=== PATIENT | female | born 1955 | race Caucasian/White ===

== ENCOUNTER → 2017-06-20 | Outpatient (CLI) | payer OTHER ==
--- NOTE | 2017-06-20 10:41 | ECHOF ---
Referral Reason:I10 HTN MEASUREMENTS -------- HEIGHT: 170.2 cm WEIGHT: 72.6 kg BP: 165/88 RVIDd: 2.0 cm (< 3.3) IVSd: 1.0 cm (0.6 - 1.1) LVIDd: 5.2 cm (3.9 - 5.3) LVPWd: 1.0 cm (0.6 - 1.1) IVSs: 1.2 cm LVIDs: 3.6 cm LVPWs: 1.3 cm LAESV Index (A-L): 25.44 ml/m Ao Diam: 3.4 cm (2.0 - 3.7) AV Cusp: 1.6 cm (1.5 - 2.6) LA Diam: 2.2 cm (2.7 - 3.8) MV EXCURSION: 20.651 mm (> 18.000) MV EF SLOPE: 105 mm/s (70 - 150) EPSS: 1.2 cm MV E Neil: 0.65 m/s MV DecT: 413 ms MV A Neil: 0.96 m/s MV E/A Ratio: 0.67 RAP: 5.00 mmHg RVSP: 19.32 mmHg FINDINGS -------- Sinus rhythm. This was a technically adequate study. Overall left ventricular systolic function is normal with, an EF between 55 - 60 %. The right ventricle is normal in size and function. Normal LA size by volume 22+/-6 ml/m2. The right atrium is normal in size. The aortic valve is trileaflet, and appears structurally normal. No aortic stenosis or regurgitation. The mitral valve leaflets are mildly thickened. There is trace to mild mitral regurgitation. Trace tricuspid regurgitation present. There is no evidence of pulmonary hypertension. The right ventricular systolic pressure, as measured by Doppler, is 19.32mmHg. The pulmonic valve was not well visualized. The aortic root size is normal. Normal inferior vena cava with normal inspiratory collapse consistent with estimated right atrial pressure of 5 mmHg. The pericardium is normal. There is no pericardial effusion. CONCLUSIONS -------- 1. Sinus rhythm. 2. The right ventricular systolic pressure, as measured by Doppler, is 19.32mmHg. 3. The pulmonic valve was not well visualized. 4. The aortic root size is normal. 5. There is no pericardial effusion. 6. This was a technically adequate study. 7. Overall left ventricular systolic function is normal with, an EF between 55 - 60 %. 8. Normal LA size by volume 22+/-6 ml/m2. 9. The aortic valve is trileaflet, and appears structurally normal. No aortic stenosis or regurgitation. 10. The mitral valve leaflets are mildly thickened. 11. There is trace to mild mitral regurgitation. 12. Trace tricuspid regurgitation present. 13. There is no evidence of pulmonary hypertension. WEATHER FORCASTER: Cory Cannon RDCS
== END | disposition home or self-care (01) ==
LOC: RADECHMAIN 08:30
PROVIDERS: ATTEND Family Medicine
DX: I34.0 Nonrheumatic mitral (valve) insufficiency (principal); I10 Essential (primary) hypertension
CPT/HCPCS: 93306

== ENCOUNTER → 2017-06-27 | Outpatient (CLI) | payer OTHER ==
--- NOTE | 2017-06-27 11:46 | NM ---
EXAMINATION TYPE: NM stress cardiolite complete DATE OF EXAM: 06/27/2017 COMPARISON: Nuclear medicine stress Cardiolite test dated 07/06/2015. HISTORY: History of hypercholesterolemia, family history of coronary artery disease, and history of t obacco abuse. Chest pain. TECHNIQUE: After the intravenous administration of 10.68 mCi Tc 99m Sestamibi - Rest images obtained 52 minutes post injection. The patient exercised using a KAMARI protocol and 1 minute prior to peak exercise was injected with 27.3 mCi Tc 99m Sestamibi - Stress images obtained 10 minutes post inject ion. FINDINGS: Targeted heart rate was achieved during performance of the study. Review of stress and rest SPECT tami ges demonstrates no distinct perfusion abnormality. Gated analysis shows normal wall motion with an estimated left ventricular ejection fraction of 64 %. IMPRESSION: 1. No scintigraphic evidence for reversible ischemia. 2. Estimated left ventricular ejection fraction of 64%.
--- NOTE | 2017-06-27 11:49 | P.STRESS ---
- Stress Test Note Stress Test Results/Findings: Exam Performed: NM stress cardiolite complete Exam Date: 06/27/17 Reason for Exam: Chest pain Height: 5 ft 7 in Weight: 72.575 kg Protocol: Cardiolite patti Stage: 3 Duration of Exercise: 11:00 Resting Heart Rate: 69 Resting Blood Pressure: 143/84 Maximum Achieved Heart Rate: 153 Maximum Achieved Blood Pressure: 219/91 85% PMHR: 135 100% PMHR: 159 METS: 12.1 Technologist Comment: Stress Test Results/Findings: Resting EKG shows a normal sinus rhythm with normal PA interval and QRS duration and normal ST-T waves. No ST segment depression suggestive ischemia was noted. Isolated PVCs were noted. Shouldn't did not complain of any chest pain during the test. Conclusion. Resting EKG is not suggestive ischemia. Patient did not complain of any anginal pain during the test Occasional PVCs were noted. The results of the nuclear study will follow.
== END | disposition home or self-care (01) ==
LOC: RADNMMAIN 08:50
PROVIDERS: ATTEND Family Medicine
DX: I49.3 Ventricular premature depolarization (principal); I10 Essential (primary) hypertension
CPT/HCPCS: 93017; 78452; A9500

== ENCOUNTER → 2018-06-06 | Outpatient (CLI) | payer BC ==
--- NOTE | 2018-06-06 10:45 | BD ---
EXAMINATION TYPE: Axial Bone Density DATE OF EXAM: 06/06/2018 COMPARISON: NONE CLINICAL HISTORY: Postmenopausal female Height: 5 FT 6 1/2 IN Weight: 159 RISK FACTORS HISTORY OF: Active: YES Postmenopausal woman: AGE 54 MEDICATIONS: Prednisone or other steroids: How Long: Thyroid Medications: Which medication: How Long: Osteoporosis Medications: Which medication: How Long: Additional Medications: LISINOPRIL, LEVOTHYROXINE,ATORVASTATIN, MELOXICAM, ASPIRIN, MULTI Additional History: EXAM MEASUREMENTS: Bone mineral densitometry was performed using the [employer] System. Bone mineral density as measured about the Lumbar spine is: ----- L1-L4(G/cm2): 0.997 T Score Values are as follows: ----- L2: -2.0 ----- L3: -1.6 ----- L4: -0.8 ----- L1-L4: -1.5 BASELINE Bone mineral density about the R hip (g/cm2): 0.826 Bone mineral density about the L hip (g/cm2): 0.884 T Score values are as follows: -----R Neck: -1.5 -----L Neck: -1.1 -----R Total: -1.0 -----L Total: -0.8 BASELINE IMPRESSION: Osteopenia (T Score between -2.5 and -1) overall in the low back and femoral neck level of both hips. There is slightly increased risk of fracture and the patient may be considered for treatment. Re-Screen 2-5 years. NOTE: T-SCORE=SD OF THE YOUNG ADULT MEAN.
--- NOTE | 2018-06-06 14:28 | MM ---
Reason for exam: screening (asymptomatic). Baseline mammogram. History: Patient is postmenopausal. Family history of breast cancer in maternal aunt. Physical Findings: Nurse did not find any significant physical abnormalities on exam. MG Screening Mammo w CAD Bilateral CC and MLO view(s) were taken. The breast tissue is heterogeneously dense. This may lower the sensitivity of mammography. There is no discrete abnormality. These results were verbally communicated with the patient and result sheet given to the patient on 06/06/18. ASSESSMENT: Negative, BI-RAD 1 RECOMMENDATION: Routine screening mammogram of both breasts in 1 year.
== END | disposition home or self-care (01) ==
LOC: RADBDWWP 09:41
PROVIDERS: ATTEND Family Medicine
DX: Z12.31 Encounter for screening mammogram for malignant neoplasm of breast (principal); M85.88 Other specified disorders of bone density and structure, other site; M85.851 Other specified disorders of bone density and structure, right thigh; M85.852 Other specified disorders of bone density and structure, left thigh; Z78.0 Asymptomatic menopausal state
CPT/HCPCS: 77067; 77080

== ENCOUNTER 2020-05-05 09:21 | Day surgery (SDC) | payer BC ==
[2020-04-30 12:00] VITALS: BMI 23.5
--- NOTE | 2020-05-05 08:34 | P.GSHP ---
History of Present Illness H&P Date: 05/05/20 CHIEF COMPLAINT: Colon screen HISTORY OF PRESENT ILLNESS: The patient is a 64-year-old female who presents for colon screen. Lower endoscopy was offered for further evaluation and management. PAST MEDICAL HISTORY: Please see list. PAST SURGICAL HISTORY: Please see list. MEDICATIONS: Please see list. ALLERGIES: Please see list. SOCIAL HISTORY: No illicit drug use FAMILY HISTORY: No reports of Crohn disease or ulcerative colitis. REVIEW OF ORGAN SYSTEMS: CONSTITUTIONAL: No reports of fevers or chills. PHYSICAL EXAM: VITAL SIGNS: Stable GENERAL: Well-developed pleasant in no acute distress. HEENT: No scleral icterus. Extraocular movements grossly intact. Moist buccal mucosa. NECK: Supple without lymphadenopathy. CHEST: Unlabored respirations. Equal bilateral excursions. CARDIOVASCULAR: Regular rate and rhythm. Distal 2+ pulses. ABDOMEN: Soft, nontender, nondistended. MUSCULOSKELETAL: No clubbing, cyanosis, or edema. ASSESSMENT: 1. Colon screen. PLAN: 1. Recommend proceeding with a lower endoscopy Past Medical History Past Medical History: Hyperlipidemia, Hypertension, Thyroid Disorder Additional Past Medical History / Comment(s): kidney stone, tinnitus, History of Any Multi-Drug Resistant Organisms: None Reported Past Surgical History: Section, Tonsillectomy Past Anesthesia/Blood Transfusion Reactions: No Reported Reaction Smoking Status: Never smoker - Past Family History Mother Family Medical History: No Reported History Medications and Allergies Home Medications Medication Instructions Recorded Confirmed Type Aspirin 162 mg PO DAILY 08/11/15 04/30/20 History Atorvastatin [Lipitor] 40 mg PO HS 08/11/15 04/30/20 History Levothyroxine Sodium [Synthroid] 88 mcg PO DAILY 08/11/15 04/30/20 History Cholecalciferol [Vitamin D3] 1,000 unit PO DAILY 09/14/16 04/30/20 History Lisinopril [Zestril] 10 mg PO DAILY 09/14/16 04/30/20 History Meloxicam 15 mg PO DAILY 09/14/16 04/30/20 History Multivitamins, Thera [Multivitamin] 1 tab PO DAILY 09/14/16 04/30/20 History [place]-3 Fatty Acids/Fish Oil [Fish 1 cap PO DAILY 09/14/16 04/30/20 History Oil 1,000 mg Softgel] Turmeric/Turmeric Root Extract 1 each PO DAILY 05/28/19 04/30/20 History [Turmeric 450-50 mg Capsule] Vitamin A 8,000 unit PO DAILY 05/28/19 04/30/20 History Calcium Carbonate/Vitamin D3 1 each PO DAILY 04/30/20 04/30/20 History [Calcium 600-Vit D3 2,500 Sftgl] Zinc 50 mg PO DAILY 04/30/20 04/30/20 History Allergies Allergy/AdvReac Type Severity Reaction Status Date / Time No Known Allergies Allergy Verified 04/30/20 11:47
[~2020-05-05 09:21] MED LIST: LACTATED RINGERS 1,000 ML IV SCH
[2020-05-05 09:53] VITALS: TEMP 98.1
[2020-05-05] MEDS ORDERED: PROPOFOL 10 MG/ML 20 ML VIAL IV ONE (10:52)
[2020-05-05] MEDS ORDERED: LACTATED RINGERS 1,000 ML IV ONE (11:18)
[2020-05-05] MEDS ORDERED: IV FLUID CONTINUATION 1,000 ML IV ONE (11:18)
[2020-05-05 11:20] VITALS: RESP 16
--- NOTE | 2020-05-05 11:28 | P.PCN ---
Date of Procedure: 05/05/20 Description of Procedure: PREOPERATIVE DIAGNOSIS: Colonoscopy screening POSTOPERATIVE DIAGNOSIS: Colonoscopy screening Tubular adenoma sigmoid colon Sigmoid diverticulosis Internal hemorrhoids, grade 3 OPERATION: Colonoscopy to the ileocecal valve and appendiceal orifice. Colonoscopy with cold forceps biopsies SURGEON: Anne Hassan MD. ANESTHESIA: MAC. INDICATIONS: The patient is an 64-year-old male who presents for her first colonoscopy screening. Benefits and risks were described and informed consent was obtained. DESCRIPTION OF PROCEDURE: The patient had undergone Suprep. She had been brought into the operating room and laid in the left lateral decubitus position. After adequate intravenous sedation, the rectum was examined with 2% lidocaine jelly. External hemorrhoids were encountered. The rectal tone was within normal limits. No lesions were palpated in the rectal vault. An Olympus colonoscope was advanced until the ileocecal valve and appendiceal orifice were clearly viewed. The sigmoid colon was highly redundant requiring abdominal pressure to advance the scope. The prep was fair. Sigmoid diverticulosis was encountered. Colon polyps were found and removed with cold forceps biopsy. No evidence of focal colitis was found. Retroflexion of the scope demonstrated grade 2 internal hemorrhoids without active bleeding or inflammation. The colon was desufflated. The patient had tolerated the procedure well. Withdrawal time was over 6 minutes. FINDINGS: Aronchick preparation quality scale 2 (1-5) Internal hemorrhoids, grade 2 External hemorrhoids, grade 3. No arteriovenous malformations. Highly redundant sigmoid colon Sigmoid diverticulosis Removal of 1 polyp: - Cold forceps biopsy at 20 cm from the anal verge, 5 mm polyp. No focal colitis. RECOMMENDATIONS: Repeat colonoscopy 5 years, 2024 Plan - Discharge Summary Discharge Rx Participant: No New Discharge Prescriptions: Continue Levothyroxine Sodium [Synthroid] 88 mcg PO DAILY Atorvastatin [Lipitor] 40 mg PO HS Aspirin 162 mg PO DAILY [place]-3 Fatty Acids/Fish Oil [Fish Oil 1,000 mg Softgel] 1 cap PO DAILY Cholecalciferol [Vitamin D3 (25 Mcg = 1000 Iu)] 1,000 unit PO DAILY Multivitamins, Thera [Multivitamin (formulary)] 1 tab PO DAILY Meloxicam 15 mg PO DAILY Lisinopril [Zestril] 10 mg PO DAILY Vitamin A 8,000 unit PO DAILY Zinc 50 mg PO DAILY Calcium Carbonate/Vitamin D3 [Calcium 600-Vit D3 2,500 Sftgl] 1 each PO DAILY Discontinued Turmeric/Turmeric Root Extract [Turmeric 450-50 mg Capsule] 1 each PO DAILY Discharge Medication List Aspirin 162 mg PO DAILY 08/11/15 [History] Atorvastatin [Lipitor] 40 mg PO HS 08/11/15 [History] Levothyroxine Sodium [Synthroid] 88 mcg PO DAILY 08/11/15 [History] Cholecalciferol [Vitamin D3 (25 Mcg = 1000 Iu)] 1,000 unit PO DAILY 09/14/16 [History] Lisinopril [Zestril] 10 mg PO DAILY 09/14/16 [History] Meloxicam 15 mg PO DAILY 09/14/16 [History] Multivitamins, Thera [Multivitamin (formulary)] 1 tab PO DAILY 09/14/16 [History] [place]-3 Fatty Acids/Fish Oil [Fish Oil 1,000 mg Softgel] 1 cap PO DAILY 09/14/16 [History] Vitamin A 8,000 unit PO DAILY 05/28/19 [History] Calcium Carbonate/Vitamin D3 [Calcium 600-Vit D3 2,500 Sftgl] 1 each PO DAILY 04/30/20 [History] Zinc 50 mg PO DAILY 04/30/20 [History] Follow up Appointment(s)/Referral(s): Anne Hassan MD [STAFF PHYSICIAN] - As Needed Patient Instructions/Handouts: *Surgery [facility] - (Anesthesia) Endoscopy Discharge Instructions, Diverticulosis (DC), Colorectal Polyps (DC), Diverticulosis Diet (GEN) Discharge Disposition: HOME SELF-CARE
[2020-05-05 11:39] VITALS: BP 176/82; PULSE 54
== END 2020-05-05 11:59 | disposition home or self-care (01) ==
LOC: ORWHC2ENDO 09:21
PROVIDERS: ATTEND Surgery Plastic and Reconstructive Surgery
DX: Z12.11 Encounter for screening for malignant neoplasm of colon (principal); K63.5 Polyp of colon; K57.30 Diverticulosis of large intestine without perforation or abscess without bleeding; K64.1 Second degree hemorrhoids; K64.2 Third degree hemorrhoids; K21.9 Gastro-esophageal reflux disease without esophagitis; Q43.8 Other specified congenital malformations of intestine; E78.5 Hyperlipidemia, unspecified; I10 Essential (primary) hypertension; E07.9 Disorder of thyroid, unspecified; Z87.442 Personal history of urinary calculi; H93.19 Tinnitus, unspecified ear; Z98.890 Other specified postprocedural states; Z79.1 Long term (current) use of non-steroidal anti-inflammatories (NSAID); Z79.82 Long term (current) use of aspirin; Z79.890 Hormone replacement therapy; Z79.899 Other long term (current) drug therapy
CPT/HCPCS: 88305; 45380; J2704

== ENCOUNTER → 2022-03-21 | Outpatient (CLI) | payer MEDICARE ==
--- NOTE | 2022-03-21 22:33 | BD ---
EXAMINATION TYPE: Axial Bone Density DATE OF EXAM: 03/21/2022 COMPARISON: Prior DEXA bone scan 2018 CLINICAL HISTORY: 66 years year old Female. ICD-10 CODE: Z78.0 asymptomatic menopausal state Height: 66 Weight: 130 FRAX RISK QUESTIONS: Alcohol (3 or more units per day): NO Family History (Parent hip fracture): NO Glucocorticoids (More than 3mos): NO (Ex: prednisone, prednisolone, methylprednisolone, dexamethasone, and hydrocortisone). History of Fracture in Adulthood: Secondary Osteoporosis: 1. Type 1 Diabetes: NO 2. Hyperthyroidism: YES 3. Menopause before 45: NO 4. Malnutrition: NO 5. Chronic liver disease: NO Rheumatoid Arthritis: NO Current Tobacco Use: NO RISK FACTORS HISTORY OF: Hip Fracture (Right/Left): NO Spine Fracture: NO History of Wrist Fracture: NO When: Surgery to Spine/Hip(right/left)/Wrist (right/left): NO Family History of Osteoporosis: NO Active: YES Diet low in dairy products/other sources of calcium: NO Postmenopausal woman: YES Take estrogen and/or progesterone medications: NO Lost more than 2 inches in height since high school: NO Frequent falls: NO Poor Health: NO Hyperparathyroidism: YES Adrenal Insufficiency: NO MEDICATIONS: Prednisone or other steroids: NO Thyroid Medications LEVOTHYROXINE How Long: PAST 18 YEARS Osteoporosis Medications: NO Additional Medications: SEE MED LIST IN PACS Additional History: EXAM MEASUREMENTS: Bone mineral densitometry was performed using the [employer]. Bone mineral density as measured about the Lumbar spine is: ----- L1-L4(G/cm2): 1.042 T Score Values are as follows: ----- L1: -1.8 ----- L2: -1.4 ----- L3: -1.0 ----- L4: -0.6 ----- L1-L4: 1.2 Bone mineral density has: INCREASED 5.0 % since study of: 2018 Bone mineral density about the R hip (g/cm2): 0.792 Bone mineral density about the L hip (g/cm2): 0.829 T Score values are as follows: -----R Neck: -1.8 -----L Neck: -1.5 -----R Total: -1.6 -----L Total: -1.7 Bone mineral density has: DECREASED 10.7 % since study of: 2018 FRAX%s: The graph provided illustrates a 9.0% chance for a major osteoporotic fx and a 1.3% chance fo r the hips probability for fx in 10 years time. IMPRESSION: Osteopenia (T Score between -2.5 and -1) remains present. There is slightly increased risk of fracture and the patient may be considered for treatment. Re-Screen 2-5 years. NOTE: T-SCORE=SD OF THE YOUNG ADULT MEAN.
== END | disposition home or self-care (01) ==
LOC: RADBDWWP 10:56
PROVIDERS: ATTEND Family Medicine
DX: M85.89 Other specified disorders of bone density and structure, multiple sites (principal); Z78.0 Asymptomatic menopausal state
CPT/HCPCS: 77080